=== PATIENT | male | born 1975 | race African-American/Black ===

== ENCOUNTER 2019-08-02 19:52 | Emergency (ER) | payer OTHER ==
[~2019-08-02] VITALS: Ht 177.8 cm; Wt 99.8 kg
--- NOTE | 2019-08-02 20:05 | NUR ---
ED Nurse Note: Walk-in patient presents with complaints of cough with yellow phelgmn x 1 month.
[2019-08-02 20:06] VITALS: BP 102/70
--- NOTE | 2019-08-02 20:12 | Emergency Room Report ---
History of Present Illness General Chief Complaint: Flu Like Symptoms Source: Patient Present Illness HPI 44-year-old male with no significant past medical history here complaining of 1 month of cough with yellow phlegm formation. Patient reports that he does not have any fever and chills, sore throat, congestion, wheezing, chest pain. Patient denies history of tobacco smoke, weeping, or any drug use. Denies abdominal pain, nausea vomiting, and other associated symptoms. Patient appears stable with stable vital signs. Reports that he has not taken medication for symptom relief. Patient reports that he is a diabetic and currently take his metformin. 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 Review of Systems All Other Systems: negative except mentioned in HPI Physical Exam Vital Signs Date Time Temp Pulse Resp B/P (MAP) Pulse Ox O2 Delivery O2 Flow Rate FiO2 08/02/19 19:58 99.1 100 16 102/70 (81) 96 Sp02 EP Interpretation: reviewed, normal General Appearance: no apparent distress, alert, GCS 15, non-toxic Head: normocephalic, atraumatic Eyes: bilateral eye normal inspection, bilateral eye PERRL ENT: hearing grossly normal, no angioedema, normal voice, pharyngeal erythema Neck: full range of motion, supple/symm/no masses Respiratory: chest non-tender, lungs clear, normal breath sounds, no rhonchi, no respiratory distress, no retraction, speaking full sentences Cardiovascular #1: regular rate, rhythm, no edema Gastrointestinal: normal bowel sounds, non tender, soft, non-distended, no guarding, no rebound Rectal: deferred Genitourinary: normal inspection, no CVA tenderness Musculoskeletal: back normal, gait/station normal, normal range of motion, non- tender Neurologic: alert, oriented x3, responsive, motor strength/tone normal, sensory intact, speech normal Psychiatric: normal inspection Skin: no rash Lymphatic: no adenopathy Medical Decision Making PA Attestation All my diagnosis and treatment plans were reviewed ad discussed with my supervising physician Dr. Dorman Diagnostic Impression: Primary Impression: Bronchitis ER Course 44-year-old male with no significant past medical history here complaining of 1 month of cough with yellow phlegm formation. Patient reports that he does not have any fever and chills, sore throat, congestion, wheezing, chest pain. Patient denies history of tobacco smoke, weeping, or any drug use. Denies abdominal pain, nausea vomiting, and other associated symptoms. Patient appears stable with stable vital signs. Reports that he has not taken medication for symptom relief. Patient reports that he is a diabetic and currently take his metformin. Ddx considered but are not limited to: bronchitis, PNA, URI viral, bacterial bronchitis Vital signs: are WNL, pt. is afebrile H&PE are most consistent with: Bronchitis presumed bacterial secondary to patient's diabetic status ORDERS: Azithromycin, Tessalon Perles, albuterol, no x-rays needed at this time as patient has normal vital signs and lungs are clear to auscultation ED INTERVENTIONS: None required at this time. DISCHARGE: At this time pt. is stable for d/c to home. Will provide printed patient care instructions, and any necessary prescriptions. Care plan and follow up instructions have been discussed with the patient prior to discharge. Patient agrees with the above treatment and also agrees to follow-up with primary care. I also advised him to follow-up with the emergency room if worsening symptoms. Last Vital Signs Date Time Temp Pulse Resp B/P (MAP) Pulse Ox O2 Delivery O2 Flow Rate FiO2 08/02/19 20:06 99.1 89 16 102/70 96 Disposition: HOME, SELF-CARE Condition: Stable Scripts Albuterol Sulfate (VENTOLIN HFA) 18 Gm Hfa.aer.ad 2 PUFFS INH EVERY 6 HOURS, #18 GM 0 Refills Prov: Juliana Ashraf 08/02/19 Benzonatate* (TESSALON PERLE*) 100 Mg Capsule 2 TAB ORAL THREE TIMES A DAY, #30 PERLE Prov: Juliana Ashraf 08/02/19 Azithromycin* (ZITHROMAX*) 250 Mg Tablet 250 MG ORAL DAILY, #6 TAB 0 Refills Take two tables once daily for 1 day, then one tablet once daily for 4 days. Prov: Juliana Ashraf 08/02/19 Patient Instructions: Acute Bronchitis, [id number] Additional Instructions: Take medication as directed follow-up with your primary care provider worsening symptoms return to the emergency room Juliana Ashraf Aug 02, 2019 20:12
[2019-08-02] MEDS ORDERED: TESSALON PERLE100 MG ORAL (20:15)
[2019-08-02] MEDS ORDERED: ZITHROMAX250 MG ORAL (20:15)
[2019-08-02] MEDS ORDERED: VENTOLIN HFA18 GM INH (20:15)
[2019-08-02 20:20] VITALS: BP 102/70
--- NOTE | 2019-08-02 20:20 | NUR ---
ER DISCHARGE NOTE: Patient is cleared to be discharged per ERMD, pt is aox4, on room air, with stable vital signs. pt was given dc and prescription instructions, pt was able to verbalize understanding, pt id band removed without complications. pt is able to ambulate with steady gait. pt took all belongings.
== END 2019-08-02 20:20 | disposition home or self-care (01) ==
LOC: EMR 20:18
DX: J40 Bronchitis, not specified as acute or chronic (principal); R73.03 Prediabetes
CPT/HCPCS: 99282